=== PATIENT | female | born 1980 | race Caucasian/White ===

== ENCOUNTER → 2016-08-24 08:17 | Outpatient (CLI) | payer BC | END | disposition home or self-care (01) | LOC: D.CN 05-30 09:00 | DX: M54.12 Radiculopathy, cervical region (principal) ==

== ENCOUNTER 2017-06-21 10:09 | Emergency (ER) | payer BC ==
[2017-06-21 11:36] LABS: APPEARANCE HAZY (CLEAR); COLOR YELLOW (YELLOW); NITRITE NEGATIVE (NEGATIVE); PROTEIN NEGATIVE (NEGATIVE); SPECIFIC GRAVITY 1.015 (1.005-1.020)
[2017-06-21 11:37] LABS: BILIRUBIN NEGATIVE (NEGATIVE); GLUCOSE NEGATIVE (NEGATIVE); KETONE NEGATIVE (NEGATIVE); UROBILINOGEN NORMAL (NORMAL)
== END 2017-06-21 12:40 | disposition home or self-care (01) ==
LOC: D.ER 10:09
PROVIDERS: Family Medicine
DX: M54.30 Sciatica, unspecified side (principal); S39.012A Strain of muscle, fascia and tendon of lower back, initial encounter; X58.XXXA Exposure to other specified factors, initial encounter; Y93.89 Activity, other specified; Y92.89 Other specified places as the place of occurrence of the external cause

== ENCOUNTER → 2017-08-09 17:18 | Outpatient (CLI) | payer BC | END | disposition home or self-care (01) | LOC: D.MRI 17:18 | DX: M54.16 Radiculopathy, lumbar region (principal) ==

== ENCOUNTER → 2018-08-13 10:54 | Outpatient (CLI) | payer BC | END | disposition home or self-care (01) | LOC: D.MRI 10:54 | PROVIDERS: ATTEND Family Medicine | DX: R51 Headache (principal); R26.81 Unsteadiness on feet ==

== ENCOUNTER 2018-09-06 07:20 | Emergency (ER) | payer BC ==
[~2018-09-06] VITALS: Ht 160 cm; Wt 118.2 kg
[2018-09-06 07:31] VITALS: Ht 160 cm; Wt 118.2 kg
[2018-09-06] MEDS ORDERED: ATIVAN1 MG PO (07:33)
[2018-09-06] MEDS ORDERED: LISINOPRIL20 MG PO (07:33)
[2018-09-06] MEDS ORDERED: MECLIZINE HCL25 MG PO (07:34)
[2018-09-06] MEDS ORDERED: CELEXA10 MG PO (07:35)
[2018-09-06 08:29] LABS: BASOPHILS 0.2 % (0-2); HEMATOCRIT 41.5 % (36.0-48.0); HEMOGLOBIN 14.1 g/dL (12-16); IMMATURE GRANULOCYTES 0.5 % (0-5); MCH 30.7 pg (26.0-34.0); MCV 90.2 fL (80.0-100.0); MEAN PLATELET VOLUME 9.9 fL (7.4-10.4); MONOCYTES 9.3 % (2-11); PLATELET COUNT 244 10x3/uL (130-400); RDW 12.5 % (11.5-14.5); WBC 8.3 10x3/uL (4.8-10.8)
[2018-09-06 08:46] LABS: ALBUMIN 3.4 g/dL (3.4-5.0); ANION GAP 9.1 mmol/L (8-16); BILIRUBIN - TOTAL 0.7 mg/dL (0.2-1.3); CALCIUM 8.5 mg/dL (8.5-10.1); CARBON DIOXIDE 30.5 mmol/L (21.0-32.0); POTASSIUM - SERUM 3.6 mmol/L (3.5-5.1); PROTEIN - SERUM 7.1 g/dL (6.4-8.2)
[2018-09-06 08:49] LABS: C-REACTIVE PROTEIN 0.6 mg/dL (0.0-0.9)
[2018-09-06 09:25] VITALS: BP 127/56
== END 2018-09-06 09:26 | disposition home or self-care (01) ==
LOC: D.ER 07:20
PROVIDERS: Family Medicine
DX: M54.12 Radiculopathy, cervical region (principal)

== ENCOUNTER 2019-02-17 19:38 | Emergency (ER) | payer BC ==
[~2019-02-17] VITALS: Ht 160 cm; Wt 117.9 kg
[~2019-02-17 19:38] MED LIST: ATIVAN1 MG PO; CELEXA10 MG PO; LISINOPRIL20 MG PO; MECLIZINE HCL25 MG PO
[2019-02-17 20:03] VITALS: Ht 160 cm; Wt 117.9 kg
[2019-02-17] MEDS ORDERED: NEURONTIN 300300 MG PO (20:06)
[2019-02-17] MEDS ORDERED: VOLTAREN75 MG PO (21:40)
[2019-02-17] MEDS ORDERED: GENTAK3.5 GM EACH EYE (21:40)
[2019-02-17 22:01] VITALS: BP 157/78
== END 2019-02-17 22:02 | disposition home or self-care (01) ==
LOC: D.ER 19:38
DX: S05.01XA Injury of conjunctiva and corneal abrasion without foreign body, right eye, initial encounter (principal); X58.XXXA Exposure to other specified factors, initial encounter; Y93.9 Activity, unspecified; Y92.9 Unspecified place or not applicable; I10 Essential (primary) hypertension

== ENCOUNTER 2019-04-07 18:18 | Inpatient (IN) | payer BC ==
[~2019-04-07] VITALS: Ht 160 cm; Wt 123.6 kg
[2019-04-07 18:48] LABS: BASOPHILS 0.1 % (0-2); EOSINOPHILS 1.8 % (0-7); HEMATOCRIT 36.9 % (36.0-48.0); IMMATURE GRANULOCYTES 0.4 % (0-5); LYMPHOCYTES 32.3 % (15-50); MCH 30.1 pg (26.0-34.0); MCHC 32.5 g/dL (31.0-37.0); MCV 92.5 fL (80.0-100.0); MEAN PLATELET VOLUME 9.7 fL (7.4-10.4); MONOCYTES 8.2 % (2-11); NEUTROPHILS 57.2 % (40-80); RBC 3.99 10x6/uL (4.00-5.40); RDW 12.1 % (11.5-14.5); WBC 7.4 10x3/uL (4.8-10.8)
[2019-04-07 18:52] LABS: PLATELET COUNT 194 10x3/uL (130-400)
[2019-04-07 19:07] LABS: INR 0.97 (0.85-1.17); PROTIME 12.8 SECONDS (11.6-15.0)
[2019-04-07 19:08] LABS: APTT 30.6 SECONDS (22.8-39.4); CALC OSMOLALITY 279 mosm/kg (275-300); CALCIUM 8.4 mg/dL (8.5-10.1); CHLORIDE - SERUM 107 mmol/L (98-107); CREATININE - SERUM 0.9 mg/dL (0.6-1.3); GLUCOSE 100 mg/dL (74-106); POTASSIUM - SERUM 3.7 mmol/L (3.5-5.1); SODIUM 140 mmol/L (136-145); UREA NITROGEN 16 mg/dL (7-18); eGFR NON AFRICAN AMERICAN 74 mL/min (90-120)
[2019-04-07 19:26] LABS: ALBUMIN 3.1 g/dL (3.4-5.0); ALKALINE PHOSPHATASE 55 U/L (30-120); ALT (SGPT) 42 U/L (10-68); BILIRUBIN - TOTAL 0.22 mg/dL (0.2-1.3); CKMB 0.3 U/L (0.0-3.6); CREATINE KINASE 126 UL (21-215); MAGNESIUM - SERUM 1.9 mg/dL (1.8-2.4); PROTEIN - SERUM 6.8 g/dL (6.4-8.2); TROPONIN-I < 0.017 ng/mL (0.000-0.060)
--- NOTE | 2019-04-07 20:29 | NUR ---
RECEIVED REPORT FROM ANDRE FINN.
[2019-04-07 22:02] LABS: BILIRUBIN NEGATIVE (NEGATIVE); GLUCOSE NEGATIVE (NEGATIVE); KETONE NEGATIVE (NEGATIVE); NITRITE NEGATIVE (NEGATIVE); SPECIFIC GRAVITY 1.005 (1.005-1.020); UROBILINOGEN NORMAL (NORMAL)
[2019-04-07 22:04] LABS: BACTERIA FEW /hpf (NEGATIVE); RED CELLS - URINE 0-5 /hpf (0-5); WHITE CELLS - URINE RARE /hpf (NEGATIVE)
--- NOTE | 2019-04-07 22:28 | NUR ---
ATTEMPTED TO CALL REPORT. NURSE UNAVIALABLE. FLOOR WILL RETURN CALL WHEN AVAILABLE.
--- NOTE | 2019-04-07 22:45 | NUR ---
ADMIT TO ROOM 2109 FROM ER. ALERT/ORIENTED. ADMISSION ASSESSMENT AND HISTORY COMPLETED. HOME MEDS REVIEWED/UPDATED. PARENTS HAVE ARRIVED AND ARE VISITING WITH PATIENT. PLAN OF CARE REVIEWED AND INSTRUCTED PT ON NPO AFTER MIDNIGHT UNTIL SEEN BY SUPERVISOR ENDLESS TRACK VEHICLE IN AM.
--- NOTE | 2019-04-08 00:52 | NUR ---
MEDICATED WITH MORPHINE 4MG SIVP AT 0021 FOR CHEST PRESSURE/TIGHTNESS WITH BREATHING. OFFERED O2 AND PT DECLINED IT AT THIS TIME.
[2019-04-08 05:59] LABS: BASOPHILS 0.1 % (0-2); EOSINOPHILS 1.4 % (0-7); HEMATOCRIT 33.5 % (36.0-48.0); HEMOGLOBIN 10.9 g/dL (12-16); IMMATURE GRANULOCYTES 0.2 % (0-5); MCH 29.5 pg (26.0-34.0); MCHC 32.5 g/dL (31.0-37.0); MONOCYTES 8.2 % (2-11); NEUTROPHILS 58.1 % (40-80); PLATELET COUNT 201 10x3/uL (130-400); RDW 12.1 % (11.5-14.5); WBC 8.7 10x3/uL (4.8-10.8)
--- NOTE | 2019-04-08 06:00 | NUR ---
PT NPO SINCE MIDNIGHT. ONE ADDITIONAL REQUEST FOR PAIN MED IN LOWER BACK GIVEN BEFORE END OF SHIFT. CPOC.
[2019-04-08 06:05] LABS: MCV 90.5 fL (80.0-100.0)
[2019-04-08 06:53] LABS: ALKALINE PHOSPHATASE 51 U/L (30-120); ALT (SGPT) 36 U/L (10-68); BILIRUBIN - TOTAL 0.44 mg/dL (0.2-1.3); CALC OSMOLALITY 273 mosm/kg (275-300); CALCIUM 8.2 mg/dL (8.5-10.1); CARBON DIOXIDE 29.7 mmol/L (21.0-32.0); CHLORIDE - SERUM 102 mmol/L (98-107); CKMB 0.7 U/L (0.0-3.6); CREATINE KINASE 114 UL (21-215); CREATININE - SERUM 0.9 mg/dL (0.6-1.3); GLUCOSE 80 mg/dL (74-106); POTASSIUM - SERUM 3.8 mmol/L (3.5-5.1); SODIUM 137 mmol/L (136-145); TROPONIN-I < 0.017 ng/mL (0.000-0.060); UREA NITROGEN 16 mg/dL (7-18); eGFR NON AFRICAN AMERICAN 74 mL/min (90-120)
--- NOTE | 2019-04-08 08:02 | NUR ---
PATIENT IS AWAKE AND ALERT. SHE DENIES ANY NEEDS AT THIS TIME. REPORTS THAT SHE HAD SOME DISCOMFORT LAST NIGHT, AND IT IS MOSTLY IN HER LOWER BACK.
[2019-04-08 12:52] VITALS: Ht 160 cm; Wt 123.6 kg
--- NOTE | 2019-04-08 19:47 | NUR ---
PT LYING IN BED ALERT AND ORIENTED x4. NO SIGNS OR SYMPTOMS OF DISTRESS NOTED. RESPIRATIONS EVEN AND UNLABORED. NO COMPLAINTS OF PAIN AT THIS TIME. CALL LIGHT WITH IN REACH AND BED IS IN LOWEST POSITION. PT K[ENCOUARGED TO CALL FOR HELP WHEN NEEDED. WILL CONTINUE TO MONITOR.
--- NOTE | 2019-04-08 20:56 | NUR ---
PRN PAIN MEDICATION GIVEN FOR 4/10 PAIN LEVEL. CALL LIGHT WITHIN REACH. PT ENCOURAGED TO CALL IF SHE HAS ANY CONCERNS. WILL CONTINUE TO MONITOR
--- NOTE | 2019-04-09 03:15 | NUR ---
PT RESTING IN BED EASY TO AROUSE WITH VOICE STIMULATION. NO SIGNS OR SYMPTOMS OF DISTRESS NOTED. RESPIRATIONS EVEN AND UNLABORED. NO COMPLAINTS OF PAIN AT THIS TIME. CALL LIGHT WITHIN REACH AND BED IS IN LOWEST POSITON. WILL CONTINUE TO MONITOR.
[2019-04-09 05:35] LABS: BASOPHILS 0.1 % (0-2); HEMATOCRIT 36.6 % (36.0-48.0); HEMOGLOBIN 12.5 g/dL (12-16); IMMATURE GRANULOCYTES 0.2 % (0-5); LYMPHOCYTES 26.7 % (15-50); MCH 31.2 pg (26.0-34.0); MCHC 34.2 g/dL (31.0-37.0); MCV 91.3 fL (80.0-100.0); MEAN PLATELET VOLUME 9.8 fL (7.4-10.4); MONOCYTES 8.7 % (2-11); NEUTROPHILS 62.3 % (40-80); PLATELET COUNT 221 10x3/uL (130-400); RBC 4.01 10x6/uL (4.00-5.40); WBC 9.3 10x3/uL (4.8-10.8)
[2019-04-09 06:02] LABS: ANION GAP 11.7 mmol/L (8-16); CALCIUM 8.5 mg/dL (8.5-10.1); CARBON DIOXIDE 30.2 mmol/L (21.0-32.0); POTASSIUM - SERUM 3.9 mmol/L (3.5-5.1)
[2019-04-09 06:03] LABS: CREATININE - SERUM 1.3 mg/dL (0.6-1.3)
[2019-04-09 08:34] VITALS: BP 109/62
--- NOTE | 2019-04-09 11:24 | NUR ---
PT DISCHARGED HOME VIA WHEELCHAIR WITH FAMILY. PIV REMOVED WITH CATHETER TIP FULLY INTACT. TELEMETRY REMOVED AND RETURNED. PT SIGNED PROPER DISCHARGE INSTRUCTIONS AND REMOVED ALL VALUABLES FROM THE ROOM.
--- NOTE | 2019-04-09 17:06 | MORECARE ---
CASE MANAGEMENT DISCHARGE SUMMARY PATIENT: THAO GAMBLE UNIT: [id number] ADM DATE: 04/07/19 AGE: 38 : [birth year] SEX: F ROOM/BED: D.2104 AUTHOR: FERNANDO,DOC PHYSICIAN: REFERRING PHYSICIAN: GOSIA DELEON MD DATE OF SERVICE: 04/09/19 Discharge Plan Patient Name: THAO GAMBLE Facility: [facility]:[place] : 1980 Planned Disposition: Home Anticipated Discharge Date: 04/09/19 Discharge Date: 04/09/2019 Expected LOS: 2 Initial Reviewer: [email or web address] Initial Review Date: 04/09/2019 Generated: 04/09/19 6:06 pm Comments DCP- Discharge Planning Updated by [email or web address]: Kuldip Dangelo on 04/09/19 4:[address] Patient Name: THAO GAMBLE Admission Status: ER Accout number: [id number] Admission Date: 04-07-2019 : 1980 Admission Diagnosis: Attending: GOSIA DELEON Current LOS: 2 Anticipated DC Date: 04-09-2019 Planned Disposition: Home Primary Insurance: [facility] Discharge Planning Comments: CM MET WITH PT IN ROOM TO DISCUSS DISCHARGE PLANNING AND NEEDS. PT REPORTS LIVING AT HOME INDEPENDENTLY WITH HER SPOUSE. PT HAS NO MEDICAL EQUIPMENT AND NO OUTSIDE SERVICES ASSISTING IN THE HOME. CM DISCUSSED AVAILABILITY OF HOME HEALTH, REHAB SERVICES AND MEDICAL EQUIPMENT. PT DENIES DISCHARGE NEEDS, REPORTS HER SPOUSE WILL PICK HER UP FOR DISCHARGE HOME. Mineralogy Teacher: Kuldip Dangelo DCPIA - Discharge Planning Initial Assessment Updated by [email or web address]: Kuldip Dangelo on 04/09/19 5:01 pm * Is the patient Alert and Oriented? Yes * How many steps to enter\exit or inside your home? NONE * PCP DR. DELEON * Pharmacy [facility] [address] * Preadmission Environment Home with Family * ADLs Independent * Equipment None * Other Equipment NO MEDICAL EQUIPMENT PROVIDER PREFERNECE * List name and contact numbers for known caregivers / representatives who currently or will assist patient after discharge: JEFF GAMBLE, SPOUSE, * Verbal permission to speak to the caregivers and representatives has been obtained from the patient. N/A * Community resources currently utilized None * Please name any agencies selected above. NONE * Additional services required to return to the preadmission environment? No * Can the patient safely return to the preadmission environment? Yes * Has this patient been hospitalized within the prior 30 days at any hospital? No Patient Name: THAO GAMBLE Page [phone] at 1706 All edits/amendments must be made on the electronic document DICTATION DATE: 04/09/191705 VIRTUAL REALITY SPECIALIST: TIMMY 04/09/191705 RPT#: [id number] DC DATE:04/09/19 STATUS: DIS IN [facility] [address] [place] [address] END OF REPORT
--- NOTE | 2019-04-11 16:48 | EC ---
PATIENT:THAO GAMBLE DATE OF SERVICE: 04/07/19 SEX: F MEDICAL RECORD: [id number] DATE OF : [birth year] LOCATION:D.M2 D.210 AGE OF PATIENT: 38 ADMISSION DATE: 04/07/19 REFERRING PHYSICIAN: INTERPRETING PHYSICIAN: MILA BENJAMIN MD ECHOCARDIOGRAM REPORT ECHO CHARGES 4 ECHO COMPLETE Date: 04/08/19 CLINICAL DIAGNOSIS: CHF ECHOCARDIOGRAPHIC MEASUREMENTS (adult normal given) AC root (d.<3.7cm) 2.9 cm LV Septum d (<1.2 cm> 1.1 cm Valve Excursion 1.9 cm LV Septum (systole) 1.5 cm Left Atria (s.<4.0cm> 4.2 cm LVPW d(<1.2cm) 0.9 cm RV (d.<2.3cm) 3.1 cm LVPW (sytole) 1.1 cm LV diastole(<5.6CM) 5.6 cm MV E-F(>70mm/sec) cm LV systole 4.1 cm LVOT Diameter 1.7 cm MV exc.(>10mm) cm Est.ejection fraction (50-75%) % DOPPLER: LVIT cm/sec A 105 cm/sec E 141 cm/sec LA cm/sec RVSP 32.7 mmHg LVOT 144 cm/sec AOP1/2T m/s Asc. Ao 167 cm/sec RVOT 71 cm/sec RA cm/sec PA 129 cm/sec AV Gradient Peak 11.2 mmHg AV Mean 6.0 mmHg AV Area 1.9 cm MV Gradient Peak 8.4 mmHg MV Mean 4.6 mmHg MV Area cm COMMENTS: Siebel Solution Architect: Yenni [facility] Phototypesetting Equipment Monitor: 1 Dr. Benjamin TAPE# PACS Pericardial Effusion N DATE OF SERVICE: 04/07/2019 FINDINGS: 1. Left ventricular chamber size is within normal limits. Left ventricular systolic function is normal at 60%. 2. Left atrium is enlarged at 4.2 cm. Right atrium and right ventricle chamber sizes are within normal limits. 3. Valvular structures have normal structure and motion. 4. Doppler interrogation reveals only trace tricuspid regurgitation, no other valvular insufficiency or stenosis. Pulmonary systolic pressure is estimated at ECHOCARDIOGRAM REPORT [id number] THAO GAMBLE 33 mmHg. 5. No evidence of pericardial effusion or left ventricular thrombus. TRANSINT:[id number] Voice Confirmation ID: [id number] DOCUMENT ID: [id number] MILA BENJAMIN MD at 1648 CC: [id number] DICTATION DATE: 04/08/19 1342 ASSISTANT STORE DIRECTOR: 04/08/19 1424 DIS IN 04/09/19 [place] [id number] [place] [id number]
== END 2019-04-09 11:25 | disposition home or self-care (01) | DRG 292 ==
LOC: D.ER 18:18 → D.M2 21:24
PROVIDERS: Family Medicine; ADMIT Family Medicine; ATTEND Family Medicine
DX: I11.0 Hypertensive heart disease with heart failure (principal); Z68.42 Body mass index [BMI] 45.0-49.9, adult; I50.9 Heart failure, unspecified; E66.01 Morbid (severe) obesity due to excess calories

== ENCOUNTER 2019-06-20 05:25 | Day surgery (SDC) | payer BC ==
[2019-06-19 14:42] LABS: HEMATOCRIT 41.5 % (36.0-48.0); HEMOGLOBIN 13.2 g/dL (12-16); MCH 29.6 pg (26.0-34.0); MCHC 31.8 g/dL (31.0-37.0); MEAN PLATELET VOLUME 9.5 fL (7.4-10.4); RBC 4.46 10x6/uL (4.00-5.40); RDW 12.4 % (11.5-14.5); WBC 6.9 10x3/uL (4.8-10.8)
[~2019-06-20] VITALS: Ht 157.5 cm; Wt 126.2 kg
[2019-06-20] VITALS (27 sets, daily range): BP systolic 108–153; BP diastolic 52–94; Ht 157.5 cm; Wt 126.2 kg
--- NOTE | ~2019-06-20 | OP ---
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 PROCEDURE: Removal of anterior cervical plate at C5-C6 and C6-C7, redo fusion at C6-C7 with a separate PEEK interbody cage and anterior cervical plate and screws from [facility]. Removal of osteophytes C6-C7, right. Bone stem cell allograft. DESCRIPTION AND TECHNIQUE: After induction of general endotracheal anesthesia, the patient was positioned supine on the operating table. The neck was prepped and draped in the usual sterile fashion. Fluoroscopic x-ray and Norco dissector localized the previous hardware. A transverse skin incision was made at the level of C6-C7 after infiltration 1:100,000 epinephrine and 1% lidocaine. The platysma muscle was divided with a #15 blade. Using blunt and sharp dissection with Metzenbaum scissors, I proceeded in avascular plane medial to the carotid sheath. The previous plate was identified and the screws were loosened and the plate was removed without difficulty at C5-C6 and C6-C7. There was a solid fusion at C5-C6. Therefore, this interspace was left untouched. At C6-C7, there was an obvious nonunion of a PEEK interbody fusion from previous surgery. PEEK cage was removed without difficulty. [place] distracting pins were placed in the bodies of C6-C7. Under microscopic illumination, a Midas-Scott drill and microscope were used to remove the osteophyte from left behind during the previous operation at C6-C7 on the right. After removal of osteophytes with Midas-Scott drill, the disk material was removed with Cloward rongeurs. The C7 nerve root appeared to be completely decompressed following this. Meticulous hemostasis was maintained throughout the wound. The endplates were prepared with a curette until bleeding bone was encountered on both the superior and inferior endplates. A PEEK interbody cage was placed in the disk space under distraction. Prior to this, it was filled with Cass bone allograft with stem cells. A force screw load sharing plate was used to span the C6-C7 interspace. Following this, a good position of the hardware was confirmed with fluoroscopic x-ray. Locking cams were tightened down over the screw heads. Meticulous hemostasis was maintained throughout the wound. Wound was irrigated with copious amounts of Ancef irrigant solution. The platysma and subdermal layer was closed with interrupted 3-0 Vicryl suture. Skin was reapproximated. A sterile dressing was applied to the wound. The patient was awakened in good condition and taken to recovery. All counts were reported as correct. Estimated blood loss was minimal. TRANSINT:[id number] Voice Confirmation ID: [id number] DOCUMENT ID: [id number] OPERATIVE REPORT [id number] THAO GAMBLE JOHN MD CC: [id number] DICTATION DATE: 07/24/19 1019 COSMETICS SUPERVISOR: 07/24/19 1101 [facility] 06/21/[address] [address]
[~2019-06-20 05:25] MED LIST changes: +BAYER CHEWABLE81 MG PO; +DESERYL PO; +FEXOFENADINE HC60 MG PO; +GENTAK3.5 GM EACH EYE; +HYDROCODON-ACE1 EA10 PO; +LISINOPRIL-HCT1 EAC7 PO; +METHOCARBAMOL500 MG; +NEURONTIN 300300 MG PO; +PROZAC10 MG PO; +VOLTAREN75 MG PO
--- NOTE | 2019-06-20 11:30 | NUR ---
RECEIVED TO ROOM 2309 FROM RECOVERY. PT ALERT AND ORIENTED. IV TO LEFT FOREARM. INCISION TO RIGHT SIDE OF THROAT WITH DERMABOND. CDI. TRACHEA MIDLINE. COMPLAINS OF THROAT PAIN. DR RAMÍREZ IN UNIT ROUNDING ON PT. HOOKED UP TO MONITORS. VSS.
--- NOTE | 2019-06-20 12:33 | NUR ---
OUTPATIENT JUST BROUGHT PT BELONGINGS TO PT.
--- NOTE | 2019-06-20 13:56 | NUR ---
PT RESTING QUIETLY. VSS.
--- NOTE | 2019-06-20 17:15 | NUR ---
PT ATE ALL OF DINNER WITH NO COMPLICATIONS. NO OTHER NEEDS AT THIS TIME.
--- NOTE | 2019-06-20 19:00 | NUR ---
REPORT RECEIVED. PT SITTING UP IN BED, AAOX4. PT C/O OF SORE THROAT, REPORTS BETTER AFTER DRINKING WATER. ASSESSMENT COMPLETED, SEE FLOWSHEET. PIV IN LEFT FOREARM INFUSING, SEE IV FLOWSHEET. WILL CONTINUE TO MONITOR.
--- NOTE | 2019-06-20 21:00 | NUR ---
PT ASSISTED TO BEDSIDE COMMODE, NO ACUTE DISTRESS NOTED.
--- NOTE | 2019-06-20 23:00 | NUR ---
PT ASSISTED TO BEDSIDE COMMODE. REASSESSMENT COMPLETED, SEE FLOWSHEET.
[2019-06-21] VITALS (7 sets, daily range): BP systolic 118–145; BP diastolic 70–83
--- NOTE | 2019-06-21 01:00 | NUR ---
PT ASSISTED TO BEDSIDE COMMODE. WILL CONTINUE TO MONITOR.
--- NOTE | 2019-06-21 03:00 | NUR ---
REASSESSMENT COMPLETED, SEE FLOWSHEET. NO ACUTE DISTRESS NOTED AT THIS TIME.
--- NOTE | 2019-06-21 05:00 | NUR ---
PT ASSISTED TO BEDSIDE COMMODE WITHOUT DIFFICULTY.
--- NOTE | 2019-06-21 07:19 | NUR ---
REPORT RECIEVED, SHIFT ASSESSMENT COMPLETE, PT IS ALERT AND ORIENTED, ON RA WITH 97% O2 SAT. ALL PPP, VSS, CALL LIGHT IN REACH
--- NOTE | 2019-06-21 11:00 | NUR ---
DR. RAMÍREZ AT BEDSIDE, PA ORDERS GIVEN
[2019-06-21] MEDS ORDERED: HYDROCODON-ACE1 EA10 PO (11:06)
--- NOTE | 2019-06-21 11:30 | NUR ---
PT PIV DCD WITH CATH INTACT, INSTRUCTIONS GIVEN TO PT
--- NOTE | 2019-06-21 12:17 | NUR ---
PT DCD AT THIS TIME,
== END 2019-06-21 12:18 | disposition home or self-care (01) ==
LOC: D.OPS 05:25 → D.ICU 05:25 → D.OPS 07:30 → D.ICU 11:20 → D.OPS 06-21 12:18
PROVIDERS: Anesthesiology; ATTEND Neurological Surgery
DX: M25.78 Osteophyte, vertebrae (principal); T84.296A Other mechanical complication of internal fixation device of vertebrae, initial encounter; M54.12 Radiculopathy, cervical region; U07.1 COVID-19; I10 Essential (primary) hypertension

== ENCOUNTER → 2019-08-28 12:29 | Outpatient (CLI) | payer BC ==
[2019-06-20 11:27] VITALS: BMI 50.9
== END | disposition home or self-care (01) ==
LOC: D.CT 12:29
PROVIDERS: ATTEND Neurological Surgery
DX: M54.12 Radiculopathy, cervical region (principal)

== ENCOUNTER → 2019-10-11 14:02 | Outpatient (CLI) | payer BC ==
[2019-06-20 11:27] VITALS: BMI 50.9
== END | disposition home or self-care (01) ==
LOC: D.CT 14:02
PROVIDERS: ATTEND Neurological Surgery
DX: S12.501A Unspecified nondisplaced fracture of sixth cervical vertebra, initial encounter for closed fracture (principal)

== ENCOUNTER → 2020-04-20 08:17 | Outpatient (CLI) | payer BC ==
[2019-06-20 11:27] VITALS: BMI 50.9
== END | disposition home or self-care (01) ==
LOC: D.MRI 08:17
PROVIDERS: ATTEND Family Medicine
DX: S46.101D Unspecified injury of muscle, fascia and tendon of long head of biceps, right arm, subsequent encounter (principal)

== ENCOUNTER 2020-06-26 05:17 | Day surgery (SDC) | payer BC ==
[~2020-06-26] VITALS: Ht 160 cm; Wt 129.3 kg
[~2020-06-26 05:17] MED LIST changes: +ALDACTONE50 MG
[2020-06-26 06:00] VITALS: BP 130/52; Ht 160 cm; Wt 129.3 kg
[2020-06-26 06:52] LABS: BASOPHILS 0.2 % (0-2); EOSINOPHILS 0.8 % (0-7); HEMATOCRIT 37.4 % (36.0-48.0); HEMOGLOBIN 12.4 g/dL (12-16); IMMATURE GRANULOCYTES 0.3 % (0-5); LYMPHOCYTE ABS# 1.97 10x3/uL (1.18-3.74); LYMPHOCYTES 31.2 % (15-50); MCH 30.2 pg (26.0-34.0); MCHC 33.2 g/dL (31.0-37.0); MEAN PLATELET VOLUME 9.9 fL (7.4-10.4); MONOCYTES 11.9 % (2-11); NEUTROPHIL ABS# 3.52 10x3/uL (1.56-6.13); NEUTROPHILS 55.6 % (40-80); RBC 4.11 10x6/uL (4.00-5.40); RDW 12.1 % (11.5-14.5); WBC 6.3 10x3/uL (4.8-10.8)
[2020-06-26 07:01] LABS: ANION GAP 10.9 mmol/L (8-16); CARBON DIOXIDE 28.4 mmol/L (21.0-32.0); CREATININE - SERUM 0.9 mg/dL (0.6-1.3); POTASSIUM - SERUM 4.3 mmol/L (3.5-5.1)
[2020-06-26 07:13] LABS: PLATELET COUNT 310 10x3/uL (130-400)
[2020-06-26 07:14] LABS: HCG SERUM NEGATIVE (NEGATIVE)
--- NOTE | 2020-06-26 17:01 | NUR ---
EFFICTIVE PERIPHERAL NERVE BLOCK IN EFFECT. SLING AND WAIST SWATH PLACED. IV D/C'D WITH CANNULA INTACT, PRESSURE HELD AND DRSG PLACED. DISCHARGE INSTRUCTIONS GIVEN AND PT VERBALIZED AN UNDERSTANDING
--- NOTE | 2020-06-26 17:06 | OP ---
PATIENT NAME: THAO GAMBEL MEDICAL RECORD: [id number] :[birth year] LOCATION:[facility] ADMISSION DATE: SURGEON: MICHAEL OROZCO DO DATE OF OPERATION: 06/26/2020 PROCEDURE PERFORMED: Right shoulder arthroscopy with distal clavicle excision, subacromial decompression, biceps tenotomy and rotator cuff repair. PREOPERATIVE DIAGNOSES: Partial rotator cuff tear of the right shoulder superior labrum anterior and posterior tear, acromioclavicular joint arthritis and subacromial impingement. POSTOPERATIVE DIAGNOSES: Partial rotator cuff tear of the right shoulder superior labrum anterior and posterior tear, acromioclavicular joint arthritis and subacromial impingement. INDICATIONS: Ms. Gamble is a 40-year-old female who has had right shoulder pain for quite some time. She has tried physical therapy for several months and injections with no avail. She had an MRI showing the above findings and wants something done surgically. She was aware of the risks including infection, bleeding, damage to nerves and vessels, need for further surgery, frozen shoulder syndrome, continued pain and even and she signed the consent. SURGEON: Michael Orozco DO DESCRIPTION OF THE PROCEDURE: The patient received a block by anesthesia in the preoperative area and taken to the operative suite, laid in the left lateral decubitus position with the right shoulder up, sedated and LMA was placed. She was given 900 mg of clindamycin preoperatively. The right shoulder had been prepped and draped and a timeout had been performed. We then inserted an 18-gauge spinal needle into the shoulder joint, inflated with 60 mL of normal saline. I then established posterior portal with an 11-blade scalpel. Trocar was entered in the joint. Anterior portal site was made using 18-gauge spinal needle and 11-blade scalpel. Trocar was brought in. I then saw the SLAP tear and went up into the long head of the biceps tendon and then also noted the partial thickness tear right at the infraspinatus-supraspinatus junction. I then inspected the right shoulder joint. The cartilage was in good repair, nothing in the inferior gutter, the subscapularis was in good shape. I then brought in the burner and did a biceps tenotomy and debrided the labrum with a coag. I then went to the subacromial space, established a lateral portal with 18-gauge spinal needle and 11-blade scalpel, brought the trocar in and then the burner and shaver, and did a subacromial decompression with acromioplasty, through the anterior portal and distal clavicle excision, opened up the AC joint approximately 7-mm. I then inspected the bursal side, did not see any tears. I then went back into the joint and marked the rotator cuff tendon tear on the articular side with an 18-gauge spinal needle at the anterolateral portal. I then opened up slightly and then reprepped with ChloraPrep. I then dissected carefully down to the tear and used the appendiceal and removed the bursa on top of the rotator cuff tendon tear. I then placed a Regeneten on it and stapled in into place. I then had Og Moura, certified surgical first mate irrigate and close the open site with 2-0 Vicryl in inverted interrupted fashion, 4-0 Monocryl ran on the skin and the portal sites with 4-0 Monocryl inverted interrupted fashion and placed Dermabond and Telfa and Tegaderm on the incisions. She was then awakened and put in a sling, taken to recovery in stable condition. OPERATIVE REPORT [id number] THAO GAMBLE BLOOD LOSS: Minimal. COMPLICATIONS: None. TRANSINT:[id number] Voice Confirmation ID: [id number] DOCUMENT ID: [id number] MICHAEL OROZCO DO at 1706 CC: [id number] DICTATION DATE: 06/26/20 1040 DEPUTY SHERIFF GENERALIST/BAILIFF: 06/26/20 1606 [facility] 06/26/20 [place] [id number] [place] [address]
== END 2020-06-26 11:30 | disposition home or self-care (01) ==
LOC: D.OPS 05:17
PROVIDERS: Anesthesiology; ATTEND Orthopaedic Surgery
DX: M25.511 Pain in right shoulder (principal); M75.101 Unspecified rotator cuff tear or rupture of right shoulder, not specified as traumatic; S43.431A Superior glenoid labrum lesion of right shoulder, initial encounter; X58.XXXA Exposure to other specified factors, initial encounter; M13.811 Other specified arthritis, right shoulder; M75.41 Impingement syndrome of right shoulder